=== PATIENT | female | born 1970 | race African-American/Black ===

== ENCOUNTER 2021-03-18 13:43 | Emergency (ER) | payer SELFPAY ==
[2021-03-18 14:08] VITALS: BP 116/76; PULSE 78; RESP 16; TEMP 36.4; O2SAT 100
--- NOTE | 2021-03-18 18:31 | ED.GENADULT ---
HPI - General Adult General Chief complaint: Extremity Injury, Lower Stated complaint: R LEG PAIN [id number] Time Seen by Provider: 03/18/21 15:39 Source: patient Mode of arrival: ambulatory Limitations: no limitations History of Present Illness HPI narrative: Patient is a 58-year-old female with chief complaint of intermittent pain to the lateral aspect of her right calf that began after wearing high heeled boots to a on Thursday and doing a lot of prolonged standing and walking. Patient denies any fall or injury. Patient denies any notable swelling, erythema to the lower lip. Patient denies history of DVTs but states that she saw at for them so she wanted to have her leg evaluated. She denies any shortness of breath, fever, chills, nausea, vomiting or any other symptoms. Patient reports at this time she does not have pain to the leg but it comes and goes based on movement and activity. Related Data Allergies Allergy/AdvReac Type Severity Reaction Status Date / Time No Known Allergies Allergy Verified 03/18/21 15:40 Review of Systems Review of Systems: CONSTITUTIONAL: Denies fever, chills, or sweats. EYES: Denies visual changes, redness, or discharge. ENT: Denies rhinorrhea, congestion, sore throat, or otalgia. CARDIOVASCULAR: Denies chest pain, palpitations, or edema. RESPIRATORY: Denies cough or dyspnea. GASTROINTESTINAL: Denies abdominal pain, nausea, vomiting, or diarrhea. GENITOURINARY: Denies dysuria or hematuria. SKIN: Denies rash or itching. MUSCULOSKELETAL: Reports muscle pain denies back pain, joint pain, or myalgia. NEUROLOGIC: Denies headache, numbness, dizziness, or weakness. PSYCHIATRIC: Denies anxiety or depression. Exam Narrative: GENERAL: Well-appearing, well-nourished, and in no acute distress. HEAD: Normocephalic, atraumatic. EYES: PERRLA and EOMI. CHEST: Clear to auscultation. No respiratory distress. No wheezes rales or rhonchi HEART: Regular rate and rhythm. No murmur heard. Normal peripheral pulses. EXTREMITIES: Normal range of motion. No edema. No erythema. No swelling or tightness to the posterior calf of right leg. No induration. No pain with palpation or range of motion presently. Patient reports that tightening and pain of the area comes and goes. Patient able to weight-bear without difficulty. SKIN: Warm, dry, no rash. NEURO: No focal deficits. Alert and oriented x3. PSYCH: Normal mood and affect. Course Vital Signs Vital signs: Vital Signs Temperature 97.5 F L 03/18/21 14:08 Pulse Rate 78 03/18/21 14:08 Respiratory Rate 16 03/18/21 14:08 Blood Pressure 116/76 03/18/21 14:08 Pulse Oximetry 100 03/18/21 14:08 Temperature 97.5 F L 03/18/21 14:08 Pulse Rate 78 03/18/21 14:08 Respiratory Rate 16 03/18/21 14:08 Blood Pressure 116/76 03/18/21 14:08 Pulse Oximetry 100 03/18/21 14:08 Medical Decision Making MDM Narrative Medical decision making narrative: Patient does not show any signs of DVT. Patient reports pain consistent with calf strain, spasm. Patient will be prescribed naproxen and cyclobenzaprine. Patient affected to follow-up with her primary care for further evaluation of area if symptoms persist. Patient instructed to return to emergency department if she has any emergent symptoms. Vital Signs Vital Signs: Vital Signs Temperature 97.5 F L 03/18/21 14:08 Pulse Rate 78 03/18/21 14:08 Respiratory Rate 16 03/18/21 14:08 Blood Pressure 116/76 03/18/21 14:08 Pulse Oximetry 100 03/18/21 14:08 Temperature 97.5 F L 03/18/21 14:08 Pulse Rate 78 03/18/21 14:08 Respiratory Rate 16 03/18/21 14:08 Blood Pressure 116/76 03/18/21 14:08 Pulse Oximetry 100 03/18/21 14:08 Discharge Plan Discharge Clinical Impression: Strain of calf muscle Qualifiers: Encounter type: initial encounter Laterality: right Qualified Code(s): S86.811A - Strain of other muscle(s) and tendon(s) at lower leg level, right leg, initial en
== END 2021-03-18 17:13 | disposition home or self-care (01) ==
PROVIDERS: Emergency Provider Emergency Medicine
DX: S86.811A Strain of other muscle(s) and tendon(s) at lower leg level, right leg, initial encounter (principal); X50.9XXA Other and unspecified overexertion or strenuous movements or postures, initial encounter
CPT/HCPCS: 99283

== ENCOUNTER 2021-09-15 13:53 | Emergency (ER) | payer SELFPAY ==
[2021-09-15 14:10] VITALS: BP 116/70; PULSE 94; RESP 16; TEMP 36.4; O2SAT 100
--- NOTE | 2021-09-15 14:47 | ED.GENADULT ---
HPI - General Adult General Chief complaint: Skin/Abscess/Foreign Body Stated complaint: rash Source: patient Mode of arrival: ambulatory Limitations: no limitations History of Present Illness HPI narrative: Patient presents for evaluation of pruritic rash to palmar aspect of bilateral hands for the past three weeks. She states she works in a [employer]. She states she started wearing gloves after her symptoms started. She bought psoriasis and eczema medicine from the [employer] store and states that it helped minimally. She bought some cocoa butter which seemed to help. She does have similar symptoms to plantar aspect of her feet. Denies any chancre. No new lotions, soaps, detergents prior to time of symptom onset. She does admit to crack and cocaine use. She does not provide me with additional details related to her sexual history when questioned. Related Data Home Medications Medication Instructions Recorded Confirmed albuterol mcg INHALATION 09/15/21 Allergies Allergy/AdvReac Type Severity Reaction Status Date / Time No Known Allergies Allergy Verified 09/15/21 14:13 Review of Systems Review of Systems: CONSTITUTIONAL: Denies fever, chills, or sweats. EYES: Denies visual changes, redness, or discharge. ENT: Denies rhinorrhea, congestion, sore throat, or otalgia. CARDIOVASCULAR: Denies chest pain, palpitations, or edema. RESPIRATORY: Denies cough or dyspnea. GASTROINTESTINAL: Denies abdominal pain, nausea, vomiting, or diarrhea. GENITOURINARY: Denies dysuria or hematuria. SKIN: Reports pruritic rash to palmar aspect of her hands and plantar aspect of her feet MUSCULOSKELETAL: Denies back pain, joint pain, or myalgia. NEUROLOGIC: Denies headache, numbness, dizziness, or weakness. PSYCHIATRIC: Denies anxiety or depression. [facility] Past Medical History Medical History Asthma Surgical History Surgical History Hx of neck surgery Family History Family History Mother Family history non-contributory Social History Social History Smoking packs per day: 1 Smoking cigarettes per day: 20.0 Smoking status: Current every day smoker Tobacco type: cigarettes Alcohol intake: current Alcohol use details: social Substance use: current Substance use type: crack/cocaine Gender identity (if verbalized by the patient): Female Sexual Orientation (if Verbalized by the Patient): Straight or Heterosexual Spiritual care concerns: No Exam Narrative: GENERAL: Well-appearing, well-nourished, and in no acute distress. HEAD: Normocephalic, atraumatic. EYES: PERRLA and EOMI. ENT: Nares clear, no rhinorrhea or epistaxis. Mucous membranes moist. Oropharynx without tonsillar hypertrophy exudate or other lesions. Bilateral TMs pearly yarbrough nonbulging NECK: Supple. No adenopathy or masses. No carotid bruits or JVD CHEST: Clear to auscultation. No respiratory distress. No wheezes rales or rhonchi HEART: Regular rate and rhythm. No murmur heard. Normal peripheral pulses. ABDOMEN: Soft, nontender, nondistended, normal active bowel sounds. EXTREMITIES: Normal range of motion. No edema. SKIN:Peeling and flaking dermis to palmar aspect of hands and plantar aspect of feet NEURO: No focal deficits. Alert and oriented x3. PSYCH:Odd affect but pleasant Course Course Emergency Course: This is a 51-year-old female who presented with complaints of pruritic rash to hands and feet. She does have asthma so eczema would be possible etiology of symptoms. Will discharge with prednisone and triamcinolone. However I would also be concerned about syphilis. I advise she have an RPR drawn in the near future. She was given follow up information. She should go to ER for any
== END 2021-09-15 15:00 | disposition home or self-care (01) ==
PROVIDERS: Emergency Provider Nurse Practitioner
DX: L30.9 Dermatitis, unspecified (principal); J45.909 Unspecified asthma, uncomplicated; F17.210 Nicotine dependence, cigarettes, uncomplicated
CPT/HCPCS: 99213; G0463

== ENCOUNTER 2022-07-17 21:50 | Emergency (ER) | payer OTHER, SELFPAY ==
--- NOTE | ~2022-07-17 | XR_ITS ---
EXAMINATION: XR chest 2V DATE: 07/17/2022 22:58 INDICATION: Cough. Upper respiratory tract infection. TECHNIQUE: PA and lateral views of the chest were obtained. COMPARISON: None FINDINGS: The lungs are clear with no focal airspace opacities, pulmonary edema, pleural effusion or pneumothor ax. The cardiomediastinal silhouette is normal. Mild thoracic spondylosis. Mild anterior wedging at a lower thoracic vertebral body. IMPRESSION: 1. No acute cardiopulmonary disease. Reviewed, dictated and finalized at location A. [facility] [employer]
[2022-07-17 21:54] VITALS: BP 144/90; PULSE 82; RESP 18; TEMP 36.4; O2SAT 98
--- NOTE | 2022-07-17 23:53 | PC.NURSE ---
patient states wait is to long and left
== END 2022-07-17 23:53 | disposition left against medical advice (07) ==
PROVIDERS: Emergency Provider Physician Assistant
DX: R05.9 Cough, unspecified (principal)
CPT/HCPCS: 71046; 99199